=== PATIENT | male | born 1965 | race Caucasian/White ===

== ENCOUNTER 2018-08-15 08:26 | Emergency (ER) | payer BC ==
[~2018-08-15] VITALS: Ht 165.1 cm; Wt 74.8 kg
--- NOTE | 2018-08-15 08:36 | NUR ---
BIB SELF W C/O PALPITATIONS S/P EXERCISING THIS MORNING, STATED "I THINK I'M HAVING A PANIC ATTACK". TO ER BED 11, HOOKED TO MONITOR, AWAITING MD DANG
--- NOTE | 2018-08-15 08:46 | NUR ---
DR DREW AT BEDSIDE
[2018-08-15 08:59] LABS: BASOPHILS # (AUTO) 0.1 /CMM (0.0-0.2); BASOPHILS % (AUTO) 1.1 % (0.0-2.0); EOSINOPHILS % (AUTO) 5.7 % (0.0-6.0); HEMATOCRIT 53 % (39-51); LYMPHOCYTES # (AUTO) 1.3 /CMM (0.8-4.8); LYMPHOCYTES % (AUTO) 25.9 % (20.0-44.0); MEAN CORPUSCULAR HGB CONC 34 g/dl (31.0-36.0); MEAN CORPUSCULAR VOLUME 91 fL (80-96); MONOCYTES # (AUTO) 0.3 /CMM (0.1-1.30); MONOCYTES % (AUTO) 5.7 % (2.0-12.0); NEUTROPHILS % (AUTO) 61.6 % (43.0-81.0); PLATELET COUNT (AUTO) 150 /CMM (150-450); RED BLOOD CELL COUNT(AUTO) 5.81 MIL/uL (4.5-6.0); WHITE BLOOD COUNT (AUTO) 4.9 K/uL (4.3-11.0)
--- NOTE | 2018-08-15 09:10 | NUR ---
XRAY IN PROGRESS AT BS
[2018-08-15 09:11] LABS: CREATININE 1.5 mg/dL (0.6-1.3); POTASSIUM 4.3 mmol/L (3.5-5.1)
--- NOTE | 2018-08-15 09:57 | NUR ---
DR CASAS AT TALKING TO THE PATIENT.
--- NOTE | 2018-08-15 10:07 | NUR ---
Patient does not wish to proceed with medical care recommended by Dr. Becerra. Patient given information related to possible complications, up to and including , which could occur as a result of leaving the hospital at this time. Patient verbalizes understanding of risks involved due to leaving against medical advice. Patient has signed AMA form.
--- NOTE | 2018-08-15 10:10 | NUR ---
IV removed. Catheter intact and site benign. Pressure and 4x4 applied to site. No bleeding noted.
--- NOTE | 2018-08-15 10:11 | NUR ---
Labs, CXR result and verbal instructions given. Patient verbalizes understanding of instruction. Patient was told to follow up with his PMD/business applications analyst SANTO.
[2018-08-15] MEDS ORDERED: ASPIRIN 325 MG TABLET ONE (10:14)
[2018-08-15 10:16] VITALS: BP 157/105
[2018-08-15] MEDS ORDERED: ASPIRIN 325 MG TABLET PO ONE (10:30)
== END 2018-08-15 10:20 | disposition left against medical advice (07) ==
LOC: ER 08:28
DX: I21.4 Non-ST elevation (NSTEMI) myocardial infarction (principal); R07.89 Other chest pain; R00.2 Palpitations; E78.00 Pure hypercholesterolemia, unspecified; I11.9 Hypertensive heart disease without heart failure; F17.200 Nicotine dependence, unspecified, uncomplicated
CPT/HCPCS: 36415; 71045; 80048; 83880; 84484; 85025; 85730; 93005 ×2; 99284; A4606; Z7610